=== PATIENT | male | born 1935 | race Caucasian/White ===

== ENCOUNTER 2018-08-20 06:00 | Day surgery (SDC) | payer OTHER ==
[~2018-08-20 06:00] MED LIST: ALDACTONE25 MG PO; CARDURA1 MG PO; CARVEDILOL25 MG PO; CIMBALTA PO; COZAAR100 MG PO; CYMBALTA30 MG PO; GABAPENTIN100 MG PO; GABAPENTIN300 MG PO; LASIX20 MG PO; NORVASC5 MG PO; VIT B2 PO; ZOCOR40 MG PO; [UNRECOGNIZED DRUG - OTHER] PO
== END 2018-08-20 09:50 | disposition home or self-care (01) ==
LOC: CIR.AMB 06:00
DX: M48.061 Spinal stenosis, lumbar region without neurogenic claudication (principal)